=== PATIENT | male | born 1990 | race Caucasian/White ===

== ENCOUNTER 2016-12-29 03:35 | Emergency (ER) | payer MEDICAID, OTHER ==
[~2016-12-29] VITALS: Ht 172.7 cm; Wt 70.5 kg
[2016-12-29 03:47] VITALS: BP 141/82; PULSE 120; RESP 16; O2SAT 98
--- NOTE | 2016-12-29 04:47 | ED.REPORT ---
HPI-General Illness Date of Service Dec 29, 2016 ED Provider: Wm Aleman MD Pt is a 26 year old male with a history of substance abuse who presents to the ED with a desire to get clean off of opiates. He reports that he was previously clean for 8 months, and relapsed a couple of months ago. Pt reports that he last used 20 hours ago. He states that he has not been using these drug intravenously. He reports feeling depressed and like he is a burden on everyone he is around, but denies any suicidal ideation. He has no medical complaints. Nursing Notes Stated Complaint: SUBSTANCE ABUSE Chief Complaint: Substance Abuse Nursing Notes Reviewed: Yes Allergies: Coded Allergies: No Known Allergies (Verified , 12/29/16) Scheduled Buprenorphine HCl/Naloxone HCl (Suboxone 8 mg-2 mg Sl Film) 1 Each Film 2 EACH SL DAILY General Time Seen by MD: 04:42 Chief Complaint Other (Sobering services) Hx Obtained From: Patient Arrived By: Walk-in Sudden in Onset?: No Severity: Current: No pain currently Severity: Maximum: No pain Similar Sx Previous: Yes Past Medical History Past Medical History IV substance abuse Social History Heroin Drug Use: IV drugs, Meth Ambulatory Status Independent Review of Systems Full Review of Systems Constitutional: Denies: Chills, Fever, Malaise, Weakness - generalized Respiratory: Denies: Shortness of breath, Wheezing Cardiovascular: Denies: Chest pain, Syncope GI: Reports: Diarrhea, Denies: Abdominal pain, Constipation, Nausea, Vomiting Male: Denies Dysuria Musculoskeletal: Denies: Back pain, Extremity pain, Neck pain Skin: Denies Diaphoresis Neurologic: Denies: Change LOC, Dizziness, Headache, Syncope, Weakness Complete sys rev & neg: except as marked. Physical Exam Vital Signs Vital Signs Date Time Temp Pulse Resp B/P Pulse Ox O2 Delivery O2 Flow Rate FiO2 12/29/16 06:29 96 16 128/76 98 Room Air 12/29/16 03:47 37.8 120 16 141/82 98 Room Air Initial VS: Reviewed, Vital signs abnormal General/Constitutional: Well-developed, Well-nourished Head / Eyes: Atraumatic, Normocephalic, PERRL ENT: Mucous membranes moist, Conjunctiva normal, No scleral icterus Neck: Supple, Non-tender, Full range of motion Respiratory: Breath sounds normal, Clear to auscultation, No respiratory distress Cardiovascular: Regular rate & rhythm, Heart sounds normal, Intact distal pulses Skin: Warm, Dry, No cyanosis Neurologic: Alert, Oriented, Nonfocal Re-Eval/Medical Decision Med Decision/Clinical Course 26-year-old male who has opioid dependence (heroin). He desires Suboxone to assist with detox. He was given Subutex 8 mg here with improvement of his withdrawal symptoms. He will be discharged home with instructions for expedited follow-up with me at [facility]. He was given Suboxone 8/2, to dissolved orally daily, #10 prescription written. Source of Hx: Old records Time of Eval: 05:14 Re-Evaluation/Progress Note: Pt is rechecked and informed of the plamn to discharge him at this time. He understands and asgrees, all questions are addressed Counseled Regarding: Diagnosis, Lab results, When/why to return to ED Discharge & Departure Primary Impression: Opioid dependence with withdrawal Disposition: Home Discharge Condition All VS Reviewed: Yes Condition: Stable Patient Instructions: Buprenorphine/Naloxone (By mouth) Additional Instructions: You received buprenorphine 8 mg here in the emergency room. Suboxone 8/2 film or tablets, 2 sublingual daily, #10 prescription written. Do not use meth or heroin. Call [phone] Saturday morning to schedule an appointment to see me at [facility] on Saturday or Saturday. Referrals: NOPCP (PCP) Scribe Attestation Portions of this note were transcribed by Lindsey Pina. I, Dr. Aleman personally performed the history, physical exam and medical decision-making; I reviewed and confirmed the accuracy of the information in the transcribed note. Signed by: Diann Lennon, 12/28/2016 [Time] Wm Aleman MD Dec 29, 2016 04:47 YUE PINA Dec 29, 2016 04:55
[2016-12-29] MEDS ORDERED: Buprenorphine 2 mg SL Tablet SL ONE ×2 (05:00→06:20)
[2016-12-29] MEDS ORDERED: BUPR1FIL3 SL (06:19)
[2016-12-29 06:29] VITALS: BP 128/76; PULSE 96; RESP 16; O2SAT 98
== END 2016-12-29 06:30 | disposition home or self-care (01) ==
LOC: SED 03:35
DX: F11.23 Opioid dependence with withdrawal (principal)